=== PATIENT | female | born 1950 ===

== ENCOUNTER 2018-11-08 08:09 | Outpatient (CLI) | payer OTHER ==
[~2018-11-08 08:09] MED LIST: NORVASC5 MG
== END 2018-11-08 08:20 | disposition home or self-care (01) ==
LOC: MAMO-SONO 08:09
DX: N60.11 Diffuse cystic mastopathy of right breast (principal); N60.12 Diffuse cystic mastopathy of left breast; Z12.31 Encounter for screening mammogram for malignant neoplasm of breast; Z87.898 Personal history of other specified conditions

== ENCOUNTER → 2021-07-04 | Outpatient (CLI) | payer OTHER | END | disposition home or self-care (01) | LOC: MAMO-SONO 08:41 | PROVIDERS: ATTEND Obstetrics & Gynecology | DX: N60.11 Diffuse cystic mastopathy of right breast (principal); N60.12 Diffuse cystic mastopathy of left breast; Z12.31 Encounter for screening mammogram for malignant neoplasm of breast ==